=== PATIENT | female | born 1960 | race Caucasian/White ===

== ENCOUNTER 2017-06-18 17:48 | Emergency (ER) | payer MEDICAID ==
[2017-06-18 18:49] VITALS: BP 164/104
[2017-06-18] MEDS: SODIUM CHLORIDE 0.9% 1,000 ML IV ONE (19:11)
--- NOTE | 2017-06-18 19:12 | ED Physician Documentation ---
PD HPI HEENT - Stated complaint Stated Complaint: TOOTH PX - Chief complaint Chief Complaint: Heent - History obtained from History obtained from: Patient - History of Present Illness Timing - onset: Other (She started to have pain from a left maxillary premolar yesterday that has an old filling in crown on it. Today she has facial swelling on that side with fevers and chills.) Review of Systems Constitutional: reports: Fever, Chills Nose: denies: Rhinorrhea / runny nose, Congestion Throat: reports: Dental pain / toothache PD PAST MEDICAL HISTORY - Present Medications Home Medications: Ambulatory Orders Medication Instructions Recorded Confirmed Clindamycin [Cleocin] 300 mg PO Q6H 10 Days capsule 06/18/17 HYDROcod/ACETAM 5/325 [Gem 5/325] 1 - 2 ea PO Q6H PRN #15 tablet 06/18/17 - Allergies Allergies/Adverse Reactions: Allergies Allergy/AdvReac Type Severity Reaction Status Date / Time No Known Drug Allergies Allergy Verified 06/18/17 18:03 PD ED PE NORMAL - Vitals Vital signs reviewed: Yes - General General: Alert and oriented X 3, No acute distress - HEENT HEENT: Other (There is a spontaneously draining abscess lateral to premolar on the left maxilla with overlying facial swelling but no sublingual edema or trismus.) - Neck Neck: Supple, no meningeal sign, No bony TTP - Neuro Neuro: Alert and oriented X 3, Normal speech - Psych Psych: Normal mood, Normal affect Results - Vitals Vitals: Vital Signs - 24 hr 06/18/17 06/18/17 17:59 18:48 Temperature 37.9 C H 38.3 C H Heart Rate 110 H 151 H Respiratory 16 20 Rate Blood Pressure 174/114 H 164/104 H O2 Saturation 97 96 Oxygen O2 Source Room air PD MEDICAL DECISION MAKING - ED course ED course: She has a dental abscess that appears to be spontaneously draining, she says it just started draining when I was examining her but it does seem to be draining well. She was administered IV clindamycin here. Departure - Departure Disposition: 01 Home, Self Care Clinical Impression: Dental abscess Condition: Good Record reviewed to determine appropriate education?: Yes Instructions: ED Dental Abscess Facial Cellulitis Prescriptions: Clindamycin [Cleocin] 300 mg PO Q6H 10 Days capsule HYDROcod/ACETAM 5/325 [Gem 5/325] 1 - 2 ea PO Q6H PRN #15 tablet PRN Reason: Pain Comments: It is very important that she follow-up with a dentist. When it comes to dental problems like yours, the emergency department can only offer a short- term solution to your long-term problem. A couple of low cost options for dental care include: [facility] in [place], calls [phone] for an appointment Or [facility] in [place], call [phone] for an appointment. Do not drink or drive while taking narcotic pain medication. Note that many narcotic pain relievers also contain Tylenol/acetaminophen. Please ensure that your total dose of acetaminophen from all sources does not exceed 3 g (3000 mg) per day. You may get constipated while on this medication. Take a stool softener such as Colace twice a day while you are on it. Also add an [id number] laxative such as senna or MiraLAX on any day that you do not have a bowel movement. If you received a narcotic pain medication or sedative while in the emergency department, do not drive for the next 24 hours. Your blood pressure was elevated today on check into the emergency department. This does not mean that you have hypertension, it is a common phenomenon to come to the emergency department and have elevated blood pressure. I recommend that she see your primary care physician within the week to have it rechecked when you are feeling better. Discharge Date/Time: 06/18/17 20:50
[2017-06-18] MEDS: KETOROLAC 30 MG/ML VIAL IVP STA (19:35)
[2017-06-18] MEDS: CLINDAMYCIN 900 MG/50 ML 50 ML IV ONE (19:35)
[2017-06-18] MEDS ORDERED: CLINDAMYCIN 900 MG/50 ML 50 ML IV ONE (19:36)
[2017-06-18] MEDS ORDERED: KETOROLAC 30 MG/ML VIAL ONE (19:36)
[2017-06-18] MEDS ORDERED: SODIUM CHLORIDE FLUSH 0.9% 10 ML SYRINGE IVP ONE (19:37)
== END 2017-06-18 20:50 | disposition home or self-care (01) ==
LOC: ED 17:48
DX: K04.7 Periapical abscess without sinus (principal); R03.0 Elevated blood-pressure reading, without diagnosis of hypertension
CPT/HCPCS: 96361; 96365; 96375; 99283; 99284

== ENCOUNTER 2017-06-20 10:10 | Emergency (ER) | payer MEDICAID ==
--- NOTE | 2017-06-20 10:45 | ED Physician Documentation ---
PD HPI HEENT - Stated complaint Stated Complaint: FACIAL SWELLING - Chief complaint Chief Complaint: Heent - History obtained from History obtained from: Patient - History of Present Illness Timing - onset: How many days ago (few) Timing - duration: Days (few) Timing - details: Gradual onset, Still present Location: Tooth (left upper tooth with swelling and drainage into inner cheek left side. Has swelling and redness left nose and lower lid areas. Was seen in ED and was having drainage from inner mouth sore near base of the tooth. Not improved with Clinda Rx on recent visit for this.) Worsens: Swalllowing, Temperatures, Other (palpation) Associated symptoms: Swollen nodes, Facial swelling. No: Fever, Congestion, Rhinorrhea, Unable to swallow Similar symptoms before: Has not had sx before Recently seen: Emergency Dept (2 days ago with Rx of Clindamycin. Has not improved and she feels the left facial swelling is worse.) Review of Systems Constitutional: denies: Fever, Chills, Myalgias Nose: denies: Rhinorrhea / runny nose, Congestion, Sinus pressure / pain Throat: reports: Dental pain / toothache, Oral lesions / sores, Swollen tonsils. 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 - Present Medications Home Medications: Ambulatory Orders Medication Instructions Recorded Confirmed Clindamycin [Cleocin] 300 mg PO Q6H 10 Days capsule 06/18/17 06/20/17 HYDROcod/ACETAM 5/325 [Leon 5/325] 1 - 2 ea PO Q6H PRN #15 tablet 06/18/17 Cephalexin [Keflex] 500 mg PO QID #24 capsule 06/20/17 - Allergies Allergies/Adverse Reactions: Allergies Allergy/AdvReac Type Severity Reaction Status Date / Time No Known Drug Allergies Allergy Verified 06/20/17 10:15 - Social History Does the pt smoke?: No Smoking Status: Never smoker Does the pt drink ETOH?: Yes Does the pt have substance abuse?: No - Immunizations Immunizations are current?: Yes - POLST Patient has POLST: No PD ED PE NORMAL - Vitals Vital signs reviewed: Yes - General General: Alert and oriented X 3, No acute distress, Well developed/nourished - HEENT HEENT: Ears normal, Pharynx benign, Other (left upper 2nd molar with swelling at gum level, and small sore that has some purulent drainage fro th) - Neck Neck: Supple, no meningeal sign, No adenopathy - Cardiac Cardiac: RRR, No murmur - Respiratory Respiratory: Clear bilaterally - Abdomen Abdomen: No: Normal bowel sounds, Soft, Non tender, Non distended, No organomegaly, Other - Female Female : Deferred - Rectal Rectal: Deferred - Back Back: No CVA TTP - Derm Derm: Normal color, Warm and dry, Other (some redness and puffiness left lower lid and cheek area. No firmness to suggest abscess there. ) - Extremities Extremities: No tenderness to palpate, Normal ROM s pain, No edema, No calf tenderness / cord Results - Vitals Vitals: Vital Signs - 24 hr 06/20/17 06/20/17 10:12 12:11 Temperature 36.1 C L Heart Rate 75 71 Respiratory 16 14 Rate Blood Pressure 139/91 H 149/99 H O2 Saturation 100 97 Oxygen O2 Source Room air PD MEDICAL DECISION MAKING - ED course Complexity details: reviewed old records, considered differential (did not feel drainable fluid collection and the oral sore is already draining. Not improved with 2 days of CLinda, will add keflex (or considered Flagyl).), d/w patient Departure - Departure Disposition: 01 Home, Self Care Clinical Impression: Dental abscess, Facial cellulitis Condition: Stable Record reviewed to determine appropriate education?: Yes Instructions: ED Cellulitis Facial, ED Abscess Dental Prescriptions: Cephalexin [Keflex] 500 mg PO QID #24 capsule Comments: Continue the clindamycin. Add cephalexin 4 times a day for the next 5 or 6 days. Continue warm compresses and massage to the area to continue drainage of the dental abscess. Follow-up with [facility] dental clinic as planned on the . Return if not improving over the next several days. Discharge Date/Time: 06/20/17 12:13
[2017-06-20] MEDS ORDERED: cefTRIAXone 500 MG VIAL IM STA (11:07)
[2017-06-20] MEDS ORDERED: LIDOCAINE 1% 2 ML VIAL ONE (11:18)
[2017-06-20] MEDS ORDERED: cefTRIAXone 500 MG VIAL ONE (11:18)
[2017-06-20 12:12] VITALS: BP 149/99
== END 2017-06-20 12:13 | disposition home or self-care (01) ==
LOC: ED 10:10
DX: K04.7 Periapical abscess without sinus (principal); L03.211 Cellulitis of face; I10 Essential (primary) hypertension
CPT/HCPCS: 96372; 99283

== ENCOUNTER 2020-02-02 10:25 | Emergency (ER) | payer MEDICAID, OTHER ==
[2020-02-02 10:55] LABS: CLARITY,URINE CLEAR (CLEAR); GLUCOSE, URINE (UA) NEGATIVE (NEGATIVE); KETONES,URINE (UA) TRACE mg/dL (NEGATIVE); LEUKOCYTE ESTERASE, URINE NEGATIVE (NEGATIVE); NITRITE,URINE NEGATIVE (NEGATIVE); OCCULT BLOOD,URINE SMALL (NEGATIVE); PH,URINE 5.5 PH (5.0-7.5); PROTEIN,URINE 30 mg/dL (NEGATIVE); UROBILINOGEN,URINE 2 E.U./dL (NORMAL)
--- NOTE | 2020-02-02 10:56 | ED Physician Documentation ---
PD HPI ABD PAIN - Stated complaint Stated Complaint: ABD PAIN - Chief complaint Chief Complaint: Abd Pain - History obtained from History obtained from: Patient - History of Present Illness Timing - onset: How many weeks ago (has had some lower abd pain for a week or so, but worse/consistent the past 2-3 days.) Timing - duration: Weeks (1) Timing - details: Gradual onset Quality: Cramping, Aching, Pain Location: Suprapubic, LLQ Radiation: No: Chest, Lower back, Left flank Improved by: BM. No: Eating Worsened by: Other (act of urination hurts). No: Eating Associated symptoms: Nausea, Diarrhea (the past 3 days, with loose stools, no noted blood nor melena.). No: Fever, Vomiting, Constipation, Near syncope / syncope, Loss of appetite, Weight loss Similar symptoms before: Diagnosis Recently seen: Not recently seen Review of Systems Constitutional: denies: Fever, Chills, Myalgias Nose: denies: Rhinorrhea / runny nose, Congestion Throat: denies: Sore throat Respiratory: denies: Cough GI: reports: Abdominal Pain, Nausea. denies: Abdominal Swelling, Vomiting, Constipation, Diarrhea (but loose the past few days) : denies: Dysuria, Frequency Skin: denies: Rash Musculoskeletal: denies: Neck pain, Back pain Neurologic: denies: Near syncope, Altered mental status, Headache PD PAST MEDICAL HISTORY - Past Medical History Cardiovascular: Hypertension Neuro: None Endocrine/Autoimmune: None GI: Diverticulitis : Other (dropped bladder with recurrent infections, so bladder sling. Then was getting inflmmation from it and had partly removed. 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 - Present Medications Home Medications: Ambulatory Orders Medication Instructions Recorded Confirmed Clindamycin [Cleocin] 300 mg PO Q6H 10 Days capsule 06/18/17 06/20/17 HYDROcod/ACETAM 5/325 [Britton 5/325] 1 - 2 ea PO Q6H PRN #15 tablet 06/18/17 06/20/17 Cephalexin [Keflex] 500 mg PO QID #24 capsule 06/20/17 Cephalexin [Keflex] 500 mg PO TID #21 capsule 02/02/20 Hydrocodone/Acetaminophen [Britton 1 each PO Q6H PRN #20 tablet 02/02/20 5-325 Tablet] Naproxen 500 mg PO BID #20 tablet 02/02/20 metroNIDAZOLE [Flagyl] 500 mg PO BID #20 tablet 02/02/20 - Allergies Allergies/Adverse Reactions: Allergies Allergy/AdvReac Type Severity Reaction Status Date / Time No Known Drug Allergies Allergy Verified 06/20/17 10:15 - Social History Does the pt smoke?: No Smoking Status: Never smoker Does the pt drink ETOH?: Yes Does the pt have substance abuse?: No - Immunizations Immunizations are current?: Yes - POLST Patient has POLST: No PD ED PE NORMAL - Vitals Vital signs reviewed: Yes - General General: Alert and oriented X 3, Well developed/nourished - HEENT HEENT: Atraumatic, Pharynx benign - Neck Neck: Supple, no meningeal sign, No adenopathy - Cardiac Cardiac: RRR (not fibrillation), No murmur - Respiratory Respiratory: Clear bilaterally - Abdomen Abdomen: Soft, Non tender Results - Vitals Vitals: Vital Signs - 24 hr 02/02/20 02/02/20 02/02/20 10:30 10:34 13:10 Temperature 36.5 C Heart Rate 105 H 104 H 92 Respiratory 16 16 18 Rate Blood Pressure 146/105 H 145/98 H 134/94 H O2 Saturation 98 98 96 Oxygen O2 Source Room air - Labs Labs: Laboratory Tests 02/02/20 02/02/20 02/02/20 10:40 10:57 10:57 WBC 8.2 RBC 4.55 Hgb 13.7 Hct 40.6 MCV 89.2 MCH 30.1 MCHC 33.7 RDW 12.8 Plt Count 158 MPV 11.4 H Neut # (Auto) 6.1 Lymph # (Auto) 1.5 Coke # (Auto) 0.4 Eos # (Auto) 0.0 Baso # (Auto) 0.0 Absolute Nucleated RBC 0.00 Nucleated RBC % 0.0 Sodium 139 Potassium 3.5 Chloride 102 Carbon Dioxide 25 Anion Gap 12.0 BUN 15 Creatinine 0.8 Estimated GFR (MDRD) 74 L Glucose 189 H Calcium 9.4 Total Bilirubin 0.7 AST 84 H ALT 84 H Alkaline Phosphatase 97 Total Protein 7.8 Albumin 4.0 Globulin 3.8 Albumin/Globulin Ratio 1.1 Lipase 33 Urine Color DARK YELLOW Urine Clarity CLEAR Urine pH 5.5 Ur Specific Jerome >=1.030 H Urine Protein 30 H Urine Glucose (UA) NEGATIVE Urine Ketones TRACE Urine Occult Blood SMALL H Urine Nitrite NEGATIVE Urine Bilirubin NEGATIVE Urine Urobilinogen 2 H Ur Leukocyte Esterase NEGATIVE Urine RBC 0-5 Urine WBC 0-3 Ur Squamous Epith Cells RARE Squamous Urine Crystals 3-5 Calcium Oxalate Urine Bacteria Few Ur Microscopic Review INDICATED Urine Culture Comments NOT INDICATED - Rads (name of study) abd/pelvic CT Radiology: Prelim report reviewed (sigmoid colonic wall thickening in presence of diverticula, presume diverticulitis. Else without acute findings. ), See rad report PD MEDICAL DECISION MAKING - ED course Complexity details: re-evaluated patient (she says she is feeling well enough after meds. Feels able to go home with symptoms and a plan. ), considered d ifferential (consider urinary tract infection, stone, or diverticulitis, or vascular process. Can get CT abd. ), d/w patient Departure - Departure Disposition: 01 Home, Self Care Clinical Impression: Lower abdominal pain, Sigmoid diverticulitis Condition: Stable Record reviewed to determine appropriate education?: Yes Instructions: ED Diverticulitis Prescriptions: Cephalexin [Keflex] 500 mg PO TID #21 capsule Hydrocodone/Acetaminophen [Britton 5-325 Tablet] 1 each PO Q6H PRN #20 tablet PRN Reason: Pain metroNIDAZOLE [Flagyl] 500 mg PO BID #20 tablet Naproxen 500 mg PO BID #20 tablet Comments: Stay well-hydrated. Your CT scan does show some sigmoid diverticulitis which would account for the pains and symptoms. Use some anti-inflammatories of naproxen twice daily with food. To that add Tylenol or hydrocodone as needed for pain. Metronidazole and cephalexin antibiotics as prescribed for a week for the infection. Recheck if not improving well over the next few days return sooner if worse. Discharge Date/Time: 02/02/20 13:37
[2020-02-02 10:59] LABS: BILIRUBIN,URINE NEGATIVE (NEGATIVE); ICTOTEST,URINE NEGATIVE
[2020-02-02 11:07] LABS: BASOPHILS % (AUTO) 0.2 %; EOSINOPHILS % (AUTO) 0.5 %; HGB - HEMOGLOBIN 13.7 g/dL (12.0-16.0); LYMPHOCYTES # (AUTO) 1.5 10^3/uL (1.5-3.5); LYMPHOCYTES % (AUTO) 18.8 %; MEAN CORPUSCULAR HEMOGLOBIN 30.1 pg (27.0-31.0); MEAN CORPUSCULAR HGB CONC 33.7 g/dL (32.0-36.0); MEAN CORPUSCULAR VOLUME 89.2 fL (81.0-99.0); MEAN PLATELET VOLUME 11.4 fL (7.9-10.8); MONOCYTES # (AUTO) 0.4 10^3/uL (0.0-1.0); MONOCYTES % (AUTO) 5.4 %; NEUTROPHILS # (AUTO) 6.1 10^3/uL (1.5-6.6); NEUTROPHILS % (AUTO) 74.6 %; PLT - PLATELET COUNT 158 10^3/uL (130-450); RED BLOOD COUNT 4.55 10^6/uL (4.20-5.40); RED CELL DISTRIBUTION WIDTH 12.8 % (12.0-15.0); WHITE BLOOD COUNT 8.2 x10^3/uL (4.8-10.8)
[2020-02-02 11:11] LABS: RBC,URINE 0-5 /HPF (0-5)
[2020-02-02 11:12] LABS: BACTERIA,URINE Few /HPF (None Seen); CRYSTALS,URINE 3-5 Calcium Oxalate /LPF; SQUAMOUS EPITHELIAL CELL,UR RARE Squamous (<= Few)
[2020-02-02 11:25] LABS: ALBUMIN/GLOBULIN RATIO 1.1 (1.0-2.2); BILIRUBIN,TOTAL 0.7 mg/dL (0.2-1.0); CALCIUM 9.4 mg/dL (8.5-10.3); CREATININE 0.8 mg/dL (0.4-1.0); TOTAL PROTEIN 7.8 g/dL (6.7-8.2)
[2020-02-02] MEDS ORDERED: KETOROLAC 30 MG/ML VIAL IVP STA (11:30)
[2020-02-02] MEDS ORDERED: HYDROmorphone 1 MG/ML CARPUJECT IVP STA (11:30)
[2020-02-02] MEDS ORDERED: SODIUM CHLORIDE 0.9% 1,000 ML IV STA (11:30)
[2020-02-02] MEDS ORDERED: IOVERSOL 320 100 ML VIAL IVP ONE ×2 (11:45→14:41)
[2020-02-02] MEDS ORDERED: cefTRIAXone 1 GM VIAL IVP STA (11:57)
[2020-02-02] MEDS ORDERED: metroNIDAZOLE 500 MG/100 ML 500 MG/100 ML BAG IV STA (12:01)
--- NOTE | 2020-02-02 12:35 | CT Report ---
Reason: lower abd/LLQ pain for 4 days increasing Procedure Date: 02/02/2020 Accession Number: [id number] / [id number] Procedure: CT - Abdomen/Pelvis W CPT Code: Final Report FULL RESULT: PROCEDURE: Abdomen/Pelvis W INDICATIONS: lower abd/LLQ pain for 4 days increasing CONTRAST: IV CONTRAST: Optiray 320 ml: 100 PO CONTRAST: *NO PO CONTRAST TECHNIQUE: After the administration of oral and intravenous contrast, 5 mm thick sections acquired from the diaphragms to the symphysis. 5 mm thick coronal and sagittal reformats were acquired. For radiation dose reduction, the following was used: automated exposure control, adjustment of mA and/or kV according to patient size. COMPARISON: None. FINDINGS: Image quality: Excellent. ABDOMEN: Lung bases: Lung bases are clear. Heart size is normal. Solid organs: Liver is enlarged with steatosis. The spleen is normal in size . Low-attenuation foci are present within the liver the largest in the posterior right hepatic lobe measuring 22 mm. Hounsfield units measure 20. Gallbladder is unremarkable Biliary system is non dilated. Pancreas enhances normally. No adrenal nodules. Kidneys demonstrate normal size and enhancement, without hydronephrosis. Peritoneum and bowel: Bowel loops are nonobstructive. Colonic diverticula are present. There is marked thickening within the sigmoid colon with pericolonic inflammatory change. Nodes and vessels: No retroperitoneal or mesenteric adenopathy by size criteria. Aorta and inferior vena cava are normal in size. Calcification is noted within the vessels of the splenic hilum. Miscellaneous: No ventral hernias. PELVIS: Genitourinary: Bladder wall thickness is normal. Miscellaneous: No inguinal hernias or adenopathy. Bones: No suspicious bony lesions. No vertebral body compression fractures. IMPRESSION: 1. Sigmoid colonic thickening with diverticula most consistent with colitis secondary to diverticulitis. No abscess. 2. Hepatomegaly with steatosis. 3. Low-attenuation hepatic foci with the largest most consistent with cyst. The smaller foci are too small to definitively characterize although could represent small cysts. 4. Calcification within the vessels of the splenic hilum as above suggestive of calcified/thrombosed aneurysm. Reviewed by: Angelina Woodruff MD on 02/02/2020 12:30 PM PDT Approved by: Angelina Woodruff MD on 02/02/2020 12:30 PM PDT Station ID: [id number]
[2020-02-02 13:11] VITALS: BP 134/94
== END 2020-02-02 13:37 | disposition home or self-care (01) ==
LOC: ED 10:25
DX: K57.32 Diverticulitis of large intestine without perforation or abscess without bleeding (principal); K76.0 Fatty (change of) liver, not elsewhere classified; I10 Essential (primary) hypertension
CPT/HCPCS: 36415; 74177; 80053; 81001; 83690; 85025; 96365; 96375; 99284; 99285; J1170; Q9967; 81003; 87086

== ENCOUNTER 2020-02-11 15:45 | Outpatient (CLI) | payer OTHER ==
[2020-02-11 18:30] LABS: BASOPHILS % (AUTO) 0.6 %; EOSINOPHILS # (AUTO) 0.1 10^3/uL (0.0-0.7); EOSINOPHILS % (AUTO) 1.4 %; HGB - HEMOGLOBIN 13.5 g/dL (12.0-16.0); LYMPHOCYTES # (AUTO) 1.9 10^3/uL (1.5-3.5); LYMPHOCYTES % (AUTO) 26.9 %; MEAN CORPUSCULAR HEMOGLOBIN 29.3 pg (27.0-31.0); MEAN CORPUSCULAR HGB CONC 32.5 g/dL (32.0-36.0); MONOCYTES # (AUTO) 0.5 10^3/uL (0.0-1.0); MONOCYTES % (AUTO) 7.1 %; NEUTROPHILS # (AUTO) 4.5 10^3/uL (1.5-6.6); NEUTROPHILS % (AUTO) 63.2 %; PLT - PLATELET COUNT 217 10^3/uL (130-450); RED BLOOD COUNT 4.61 10^6/uL (4.20-5.40); RED CELL DISTRIBUTION WIDTH 13.1 % (12.0-15.0); WHITE BLOOD COUNT 7.1 x10^3/uL (4.8-10.8)
[2020-02-11 18:41] LABS: CALCIUM 9.8 mg/dL (8.5-10.3); CREATININE 0.8 mg/dL (0.4-1.0)
== END 2020-02-11 23:59 | disposition home or self-care (01) ==
LOC: LAB.WCP 15:45
PROVIDERS: ATTEND Family Medicine
DX: K52.1 Toxic gastroenteritis and colitis (principal); T36.95XA Adverse effect of unspecified systemic antibiotic, initial encounter
CPT/HCPCS: 36415; 80048; 85025

== ENCOUNTER 2021-05-16 15:04 | Outpatient (CLI) | payer OTHER ==
[2021-05-16 17:51] LABS: BASOPHILS % (AUTO) 0.4 %; EOSINOPHILS # (AUTO) 0.1 10^3/uL (0.0-0.7); EOSINOPHILS % (AUTO) 1.1 %; HCT - HEMATOCRIT 40.3 % (37.0-47.0); LYMPHOCYTES # (AUTO) 2.4 10^3/uL (1.5-3.5); LYMPHOCYTES % (AUTO) 28.8 %; MEAN CORPUSCULAR HEMOGLOBIN 28.6 pg (27.0-31.0); MEAN CORPUSCULAR HGB CONC 32.3 g/dL (32.0-36.0); MEAN CORPUSCULAR VOLUME 88.6 fL (81.0-99.0); MEAN PLATELET VOLUME 11.4 fL (7.9-10.8); MONOCYTES # (AUTO) 0.7 10^3/uL (0.0-1.0); MONOCYTES % (AUTO) 8.4 %; NEUTROPHILS % (AUTO) 60.7 %; PLT - PLATELET COUNT 171 10^3/uL (130-450); RED BLOOD COUNT 4.55 10^6/uL (4.20-5.40); RED CELL DISTRIBUTION WIDTH 13.2 % (12.0-15.0); WHITE BLOOD COUNT 8.3 x10^3/uL (4.8-10.8)
[2021-05-16 18:04] LABS: ALBUMIN 4.8 g/dL (3.2-5.5); ALBUMIN/GLOBULIN RATIO 1.5 (1.0-2.2); BILIRUBIN,TOTAL 0.8 mg/dL (0.2-1.0); CREATININE 0.7 mg/dL (0.4-1.0); TOTAL PROTEIN 8.1 g/dL (6.7-8.2)
[2021-05-16 18:40] LABS: THYROID STIMULATING HORMONE 1.03 uIU/mL (0.34-5.60)
== END 2021-05-16 23:59 | disposition home or self-care (01) ==
LOC: LAB.WCP 15:04
PROVIDERS: ATTEND Family Medicine
DX: Z01.84 Encounter for antibody response examination (principal); U07.1 COVID-19; I10 Essential (primary) hypertension; R53.83 Other fatigue
CPT/HCPCS: 36415; 80053; 84443; 85025; 86769

== ENCOUNTER 2021-06-20 08:00 | Outpatient (CLI) | payer OTHER | END 2021-06-20 23:59 | disposition home or self-care (01) | LOC: LAB.N 08:00 | PROVIDERS: ATTEND Physician Assistant Medical | DX: M54.9 Dorsalgia, unspecified (principal) | CPT/HCPCS: 87077; 87086; 87181 ==

== ENCOUNTER 2022-04-04 08:20 | Outpatient (CLI) | payer OTHER ==
[2022-04-04 12:50] LABS: BASOPHILS % (AUTO) 0.6 %; EOSINOPHILS # (AUTO) 0.1 10^3/uL (0.0-0.7); EOSINOPHILS % (AUTO) 0.8 %; HCT - HEMATOCRIT 39.7 % (37.0-47.0); LYMPHOCYTES # (AUTO) 1.9 10^3/uL (1.5-3.5); LYMPHOCYTES % (AUTO) 30.6 %; MEAN CORPUSCULAR HEMOGLOBIN 28.6 pg (27.0-31.0); MEAN CORPUSCULAR HGB CONC 32.7 g/dL (32.0-36.0); MEAN CORPUSCULAR VOLUME 87.4 fL (81.0-99.0); MEAN PLATELET VOLUME 11.7 fL (7.9-10.8); MONOCYTES # (AUTO) 0.5 10^3/uL (0.0-1.0); MONOCYTES % (AUTO) 7.5 %; NEUTROPHILS # (AUTO) 3.7 10^3/uL (1.5-6.6); NEUTROPHILS % (AUTO) 60.2 %; PLT - PLATELET COUNT 180 10^3/uL (130-450); RED BLOOD COUNT 4.54 10^6/uL (4.20-5.40); WHITE BLOOD COUNT 6.2 x10^3/uL (4.8-10.8)
[2022-04-04 13:14] LABS: ALBUMIN 4.6 g/dL (3.2-5.5); ALBUMIN/GLOBULIN RATIO 1.6 (1.0-2.2); ALKALINE PHOSPHATASE 92 IU/L (42-121); ALT ALANINE AMINOTRANSFERASE 34 IU/L (10-60); AST ASPARTATE AMINOTRANSFERASE 26 IU/L (10-42); BILIRUBIN,TOTAL 0.6 mg/dL (0.2-1.0); BUN - BLOOD UREA NITROGEN 15 mg/dL (6-20); CALCIUM 9.6 mg/dL (8.5-10.3); CARBON DIOXIDE - CO2 26 mmol/L (21-32); CHLORIDE 102 mmol/L (101-111); CHOL/HDL RATIO 6.3 (<4.4); CHOLESTEROL 309 mg/dL; CREATININE 0.8 mg/dL (0.4-1.0); GFR - MDRD 73 (>89); GLUCOSE 161 mg/dL (70-100); HDL CHOLESTEROL 49 mg/dL; LDL CHOLESTEROL,CALCULATED 199 mg/dL; LDL/HDL RATIO 4.1 (<4.4); SODIUM 136 mmol/L (135-145); TOTAL PROTEIN 7.5 g/dL (6.7-8.2); TRIGLYCERIDES 306 mg/dL; VLDL CHOLESTEROL 61 mg/dL
[2022-04-04 13:20] LABS: THYROID STIMULATING HORMONE 0.88 uIU/mL (0.34-5.60)
== END 2022-04-04 08:21 | disposition home or self-care (01) ==
LOC: LAB.N 08:20
PROVIDERS: ATTEND Family Medicine
DX: I10 Essential (primary) hypertension (principal); K57.30 Diverticulosis of large intestine without perforation or abscess without bleeding; L72.9 Follicular cyst of the skin and subcutaneous tissue, unspecified; M67.432 Ganglion, left wrist
CPT/HCPCS: 36415; 80053; 80061; 83721; 84443; 85025

== ENCOUNTER 2022-05-12 09:20 | Outpatient (CLI) | payer OTHER ==
--- NOTE | 2022-05-12 15:12 | XRAY Report ---
PROCEDURE: Knee 2 View RT INDICATIONS: RIGHT KNEE PAIN TECHNIQUE: 2 views of the right knee(s) were acquired. COMPARISON: None. FINDINGS: Bones: No fractures or dislocations. No suspicious bony lesions. Moderate tricompartmental osteoar thritis is seen more prominent in medial femoral tibial compartment. Soft tissues: No suspicious soft tissue calcifications. IMPRESSION: Moderate tricompartmental osteoarthritis more prominent in medial femoral tibial compart ment. No fracture or dislocation. No gross soft tissue abnormalities. Reviewed by: Obed Wakefield MD on 05/12/2022 3:11 PM PDT Approved by: Obed Wakefield MD on 05/12/2022 3:11 PM PDT Station ID: [id number]
== END 2022-05-12 23:59 | disposition home or self-care (01) ==
LOC: DI.WOS 09:20
PROVIDERS: ATTEND Physician Assistant
DX: M17.11 Unilateral primary osteoarthritis, right knee (principal)

== ENCOUNTER 2022-06-22 14:47 | Outpatient (CLI) | payer OTHER ==
--- NOTE | 2022-06-23 09:05 | MRI Report ---
PROCEDURE: KNEE WO - RT INDICATIONS: CHRONIC DERANGEMENT RIGHT KNEE TECHNIQUE: Noncontrast sagittal PD fast spin echo and T2 fast spin echo with fat saturation, sagittal 3-D spoile d GE with fat saturation; coronal T1 spin echo and PD fast spin echo with fat saturation, and axial P D fast spin echo with fat saturation through the knee. COMPARISON: Right knee radiographs 05/12/2022 FINDINGS: Image quality: Excellent. Anterior cruciate ligament: Intact. Posterior cruciate ligament: Intact. Medial collateral ligament: Intact. Lateral collateral ligament: Intact. Medial meniscus: There is complex degenerative tearing and maceration of the posterior horn and body of the medial meniscus with mild extrusion of the meniscal body beyond the femorotibial joint line. Lateral meniscus: Intact. Medial and lateral tendons: The semimembranosus tendon insertions appear intact. Visualized portion s of the pes anserinus tendons appear normal. The popliteus tendon appears intact. Iliotibial band appears normal. Anterior structures: Enthesophyte is seen at the distal quadriceps tendon insertion. The quadriceps and patellar tendons appear intact. Patellar alignment is normal. No femoral trochlear dysplasia or ventral trochlear prominence. No edema in the infrapatellar fat pad. Bones: There is mild depression of the articular surface of the posterior weightbearing portion of t he medial tibial plateau that may be secondary to chronic osseous remodeling versus a remote prior he aled fracture. No acute trabecular bone injury is seen. Mild degenerative changes are seen in the pro ximal tibiofibular joint. Medial femorotibial cartilage: Focal high-grade cartilage loss at the posterior weightbearing portio n of the medial tibial plateau. There is moderate to high-grade cartilage loss in the central to post erior weightbearing portion of the medial femoral condyle. Marginal osteophytes are present. Lateral femorotibial cartilage: Focal high-grade cartilage defect at the posterior weightbearing por tion of the lateral femoral condyle measures 5 x 3 mm. There is mild surface irregularity and partial -thickness cartilage loss at the posterior weightbearing portion of the lateral tibial plateau. Linnea nal osteophytes are present. Patellofemoral cartilage: High-grade partial thickness cartilage loss is seen at the median ridge of the patella and the adjacent portion of the medial patellar facet as well as in the trochlear groove . Soft tissues: Small joint effusion. Multiple calcified loose bodies are seen anterior to the interco ndylar notch, largest which measures up to 14 mm in maximum dimension. Probable small 6 mm ossified l oose body posterior to the lateral femoral condyle near the lateral head of the gastrocnemius muscle origin. A few smaller adjacent osseous bodies are also present. There is a small medial popliteal cys t. The musculature surrounding the knee is normal in bulk. IMPRESSION: 1.Complex degenerative tearing and maceration of the posterior horn and body of the medial meniscus w ith mild meniscal extrusion. 2.Mild depression of the articular surface at the posterior weightbearing portion of the medial tibia l plateau may be secondary to remote prior trauma versus degenerative changes with remodeling. No acu te trabecular bone injury. 3.Tricompartmental osteoarthrosis with areas of at least grade III chondromalacia in all 3 compartmen ts. A focal 5 x 3 mm full-thickness cartilage defect is seen at the posterior weightbearing portion o f the lateral femoral condyle. Tricompartmental marginal osteophytes are present. 4.Small joint effusion with multiple calcified and ossified loose bodies predominantly located anteri or to the intercondylar notch and posterior to the lateral femoral condyle. 5.Small medial popliteal cyst. Reviewed by: Joel Yañez MD on 06/23/2022 9:04 AM PDT Approved by: Joel Yañez MD on 06/23/2022 9:04 AM PDT Station ID: [id number]
== END 2022-06-22 14:48 | disposition home or self-care (01) ==
LOC: DI 14:47
PROVIDERS: ATTEND Physician Assistant
DX: S83.241A Other tear of medial meniscus, current injury, right knee, initial encounter (principal); M17.11 Unilateral primary osteoarthritis, right knee; M94.261 Chondromalacia, right knee; M25.461 Effusion, right knee; M71.21 Synovial cyst of popliteal space [Baker], right knee

== ENCOUNTER 2023-05-17 08:00 | Outpatient (CLI) | payer OTHER ==
--- NOTE | 2023-05-17 16:28 | XRAY Report ---
PROCEDURE: Knee 4 View RT INDICATIONS: RIGHT KNEE PAIN TECHNIQUE: 3 views of the right knee(s) were acquired. COMPARISON: X-ray right knee, 05/12/2022. FINDINGS: Bones: No fractures or dislocations. No suspicious bony lesions. Moderate tricompartmental osteoart hritic changes are present. There is moderate joint space narrowing in the medial femorotibial compar tment. Soft tissues: No knee joint effusion. No suspicious soft tissue calcifications or masses. IMPRESSION: Moderate osteoarthritis. Reviewed by: Wenceslao Joseph MD on 05/17/2023 4:27 PM PDT Approved by: Wenceslao Joseph MD on 05/17/2023 4:27 PM PDT Station ID: [id number]
== END 2023-05-17 23:59 | disposition home or self-care (01) ==
LOC: DI.WOS 08:00
PROVIDERS: ATTEND Physician Assistant Surgical
DX: M17.11 Unilateral primary osteoarthritis, right knee (principal)